=== PATIENT | male | born 1940 | race American Indian/Alaskan Native ===

== ENCOUNTER 2021-05-07 06:02 | Day surgery (SDC) | payer MEDICARE ==
[~2021-05-07 06:02] MED LIST: SODIUM CHLORIDE 0.9% 1000 ML 1,000 ML IV SCH; ceFAZolin/STERILE WATER 2 GM/20 ML SYRINGE IV NR
[2021-05-07] MEDS ORDERED: BACTERIOSTATIC SODIUM CHLORIDE 0.9% 30 ML VIAL INFILTRATI ONE (06:39)
[2021-05-07 07:05] LABS: Hematocrit 26.4 % (35.5-45.6); Hemoglobin 8.9 gm/dl (11.8-15.2); Mean Corpuscular HGB Conc 34 % (32-34); Mean Corpuscular Volume 92 fl (84-94); Platelet Count 198 K/mm3 (140-440); Red Blood Count 2.87 M/mm3 (3.65-5.03); Red Cell Distribution Width 19.1 % (13.2-15.2)
[2021-05-07] MEDS ORDERED: LIDOCAINE (1%) 10 MG/1 ML VIAL 20 ML MDV ONE ×2 (07:19→07:20)
[2021-05-07] MEDS ORDERED: BUPIVACAINE/PF (0.5%) 5 MG/1 ML 30 ML VIAL INFILTRATI ONE (07:19)
[2021-05-07] MEDS ORDERED: BUPIVACAINE/PF (0.25%) 2.5 MG/ML 30 ML VIAL INFILTRATI ONE (07:19)
[2021-05-07] MEDS ORDERED: HEPARIN 10,000 UNITS/10 ML VIAL ONE (07:19)
[2021-05-07] MEDS ORDERED: SODIUM CHLORIDE P/F VIAL 10 ML 10 ML ONE (07:19)
[2021-05-07] MEDS ORDERED: rifAMPin 600 MG VIAL ONE (07:20)
[2021-05-07] MEDS ORDERED: SODIUM CHLORIDE 0.9% 250ML 250 ML ONE (07:20)
[2021-05-07] MEDS ORDERED: SODIUM CHLORIDE 0.9% 500 ML 500 ML ONE (07:20)
[2021-05-07 07:25] LABS: Calcium 10.1 mg/dL (8.4-10.2)
[2021-05-07] MEDS ORDERED: ONDANSETRON 4 MG/2 ML INJ ONE (07:30)
[2021-05-07] MEDS ORDERED: LIDOCAINE MPF (2%) 20 MG/1 ML VIAL 5 ML ONE (07:30)
[2021-05-07] MEDS ORDERED: HYDROmorphone 1 MG/1 ML INJ ONE (07:31)
[2021-05-07] MEDS ORDERED: propofoL 200 MG/20 ML VIAL IV ONE (07:31)
[2021-05-07] MEDS: fentaNYL 100 MCG/2 ML INJ IV PRN ×2 (08:12→08:19)
[2021-05-07] MEDS: MIDAZOLAM 2 MG/2 ML INJ IV NR ×2 (08:12→08:19)
[2021-05-07] MEDS ORDERED: HEPARIN 10,000 UNITS/10 ML VIAL IV ONE ×2 (09:47→09:49)
[2021-05-07] MEDS ORDERED: rifAMPin 600 MG VIAL IV ONE (09:48)
[2021-05-07] MEDS ORDERED: SODIUM CHLORIDE 0.9% IRR 1,500 ML BOTTLE IR ONE (09:48)
[2021-05-07] MEDS ORDERED: SODIUM CHLORIDE 0.9% P/F 10 ML VIAL IV ONE (09:48)
[2021-05-07] MEDS ORDERED: SODIUM CHLORIDE 0.9% IRR 500 ML BOTTLE IR ONE (09:49)
[2021-05-07 19:47] VITALS: BP 118/72
== END 2021-05-07 06:03 | disposition home or self-care (01) ==
LOC: OR 06:02
PROVIDERS: ATTEND Surgery Vascular Surgery
DX: I13.2 Hypertensive heart and chronic kidney disease with heart failure and with stage 5 chronic kidney disease, or end stage renal disease (principal); N18.6 End stage renal disease; I50.9 Heart failure, unspecified; I42.9 Cardiomyopathy, unspecified; I25.10 Atherosclerotic heart disease of native coronary artery without angina pectoris; E78.00 Pure hypercholesterolemia, unspecified; M19.90 Unspecified osteoarthritis, unspecified site; D64.9 Anemia, unspecified; Z98.41 Cataract extraction status, right eye; Z98.42 Cataract extraction status, left eye; Z98.890 Other specified postprocedural states; Z79.899 Other long term (current) drug therapy
CPT/HCPCS: 36415; 36830; 64415; 80048; 85027; C1768; J0690; J1170; J1644; J2250; J2405; J2704; J3010; J3490; J7030; J7040; J7050; 64450